=== PATIENT | female | born 1945 | race Caucasian/White ===

== ENCOUNTER 2018-05-13 14:12 | Observation (INO) ==
[2018-05-13] MEDS ORDERED: Aspirin 81 MG TAB.CHEW PO ONE (14:47)
[2018-05-13] MEDS ORDERED: 0.9 % Sodium Chloride 500 ML IVC ONE (14:47)
--- NOTE | 2018-05-13 14:54 | Emergency Department Note ---
Disposition Clinical Impression: Elevated lipase Chest pain Qualifiers: Chest pain type: other chest pain Qualified Code(s): R07.89 - Other chest pain Disposition: Admitted As Inpatient Condition: Good General Adult HPI - General Chief complaint: ED Chest Pain Stated complaint: Diarrhea, Chest pressure Time Seen by Provider: 05/13/18 14:20 Source: patient Mode of arrival: ambulatory Limitations: no limitations - History of Present Illness HPI Narrative: Patient is a 72-year-old female presenting with nausea and diarrhea and chest pain. Patient has past medical history of pancreatitis ongoing for the past 4 years and hyperlipidemia. Patient states that she has been having ongoing episodes of pancreatitis, currently follows with gastroenterology Dr. Vigil, at [place]. She states on Sunday she started having abdominal pain located in the midepigastric region described as dull at times becoming sharp and rated 7-8 out of 10 exacerbated by any palpation or movement. She denies any alleviating factors. She states that she generally is able to control her pancreatitis with diet however has gradually gotten worse over the past few days. She has had associated diarrhea episodes multiple times per day. Denies any blood in her stool. She continues to have nausea, does not have vomiting. Denies fever or chills. She states that on Sunday she had an MRI performed of her abdomen , for further follow-up with gastroenterology. She states that she does have a follow-up appointment for this imaging today with her destination imagination coordinator. Patient also notes having chest pain that began about one hour ago, while sitting on the toilet, she began to have mid chest pressure, that radiated into the right side. She had an associated diaphoretic episode with increasing shortness of breath. She states the discomfort is currently rated at a 4 out of 10 and has been constant since that time, slightly decreasing in pain. She denies taking any medication for this pain at this point in time. She denies history of myocardial infarction, hypertension. Pain Scale: 7 - Related Data Allergies Allergy/AdvReac Type Severity Reaction Status Date / Time chlorzoxazone Allergy Hives Verified 05/13/18 15:20 [From Parafon Forte] albuterol AdvReac See Verified 05/13/18 15:20 Comments Amoxicillin [From Augmentin] AdvReac Vomiting Verified 05/13/18 15:20 ciprofloxacin [From Cipro] AdvReac Gastrointestinal Verified 05/13/18 15:20 Upset clavulanic acid AdvReac Vomiting Verified 05/13/18 15:20 [From Augmentin] Cyclobenzaprine AdvReac Muscle Pain Verified 05/13/18 15:20 [From Flexeril] naproxen [From Naprosyn] AdvReac Muscle Pain Verified 05/13/18 15:20 pentazocine [From Talwin] AdvReac Headache Verified 05/13/18 15:20 Sulfa (Sulfonamide AdvReac Gastrointestinal Verified 05/13/18 15:20 Antibiotics) Upset All systems ED: reviewed and negative except as stated. Review of Systems: As Per HPI Constitutional: Denies: fever, chills, weakness ENT ED: Denies: congestion Cardiovascular: Reports: chest pain, dyspnea on exertion. Denies: palpitations , orthopnea, edema, syncope Respiratory: Reports: dyspnea. Denies: cough, wheezes, hemoptysis, sputum production Gastrointestinal: Reports: abdominal pain, nausea, diarrhea. Denies: vomiting, constipation, hematemesis, melena, hematochezia Genitourinary: Denies: urgency, dysuria Musculoskeletal: Denies: back pain Integumentary: Denies: rash Neurological: Denies: headache, weakness, numbness, paresthesias, confusion Psychiatric: Denies: anxiety Endocrine: Reports: fatigue Physical Exam - General Limitations: no limitations, language barrier General appearance: alert, anxious - Head Head exam: atraumatic, normocephalic - Eye Eye exam: Present: normal appearance, PERRL, EOMI - ENT ENT exam: normal exam, normal oropharynx - Neck Neck exam: Present: normal inspection - Chest Chest inspection: Present: normal inspection, symmetric chest wall rise. Absent : tenderness - Respiratory Respiratory exam: Present: normal lung sounds bilaterally, respiratory distress. Absent: wheezes - Cardiovascular Cardiovascular exam: Present: regular rate, normal rhythm - Abdominal Exam Abdominal exam: Present: soft, tenderness (Throughout the left and right upper quadrants, greatest to the midepigastric region with guarding.), guarding, normal bowel sounds. Absent: rebound, rigidity - Extremities Exam Extremities exam: Present: normal inspection. Absent: pedal edema - Expanded Lower Extremity Exam Neurovascular/Tendon exam: Present: normal capillary refill. Absent: pulse deficit, motor deficit, sensory deficit - Neurological Exam Neurological exam: Present: alert, oriented X3 - Psychiatric Psychiatric exam: Present: normal affect, normal mood - Skin Skin exam: Present: warm, dry, intact Course Course Narrative: We will order ACS workup for patient along with LFTs and lipase to assess history pancreatitis. Patient recently had MRI performed of the abdomen will review this imaging. We will order 500 mL Vital Signs Temperature 97.3 F L 05/13/18 14:15 Pulse Rate 70 05/13/18 14:15 Respiratory Rate 16 05/13/18 14:15 Blood Pressure 121/84 05/13/18 14:15 O2 Sat by Pulse Oximetry 100 05/13/18 14:15 Temperature 99.0 F 05/14/18 11:10 Pulse Rate 81 05/14/18 11:10 Respiratory Rate 16 05/14/18 11:10 Blood Pressure 117/72 05/14/18 11:10 O2 Sat by Pulse Oximetry 96 05/14/18 11:10 Oxygen Delivery Oxygen Delivery Room Air Medical Decision Making - MDM Narrative Medical decision making narrative: Patient is a 72-year-old female who presents with chest pain, diarrhea with history of pancreatitis. Evaluation in the emergency department revealed a normal CBC, LFT, BMP with negative troponin and EKG. Lipase was elevated at 137. MRI that was performed last week showed dilatation of the pancreatic duct. It was recommended for ERCP to be performed for further evaluation. Patient was given 25 g of fentanyl with relief of pain. She was given 500 mL bolus of fluid. The patient has heart score of 4; with one risk factor, moderately suspicious history, normal EKG and age. Patient is agreeable for admission with observation at this point in time. At this point in time we will talk to hospitalist for observation for ACS rule out. Discussed the patient with hospitalist at 1725, was admitted for ACS rule out. - Medical Records Medical records reviewed: Yes I reviewed the patient's medical records. - Lab Data Lab results reviewed: Yes I reviewed the patient's lab results. Result diagrams: 05/13/18 15:07 05/13/18 15:07 Lab Results 05/13/18 05/13/18 05/13/18 Range/Units 15:07 15:07 15:07 WBC 7.1 (4.3-11.1) K/mcL RBC 4.72 (3.82-4.97) M/mcL Hgb 14.7 (11.5-15.4) g/dL Hct 42.1 (35.3-44.9) % MCV 89.2 (83.0-100.0) fL MCH 31.1 (28.0-33.3) pg MCHC 34.9 (31.6-35.5) g/dL RDW 12.5 (11.5-14.5) % Plt Count 260 (140-400) K/mcL MPV 9.8 (9.4-12.4) fL Immature Gran % 0.3 (0-4) % Seg Neutrophils % 73.8 % Lymphocytes % 12.9 % Monocytes % 12.1 % Eosinophils % 0.6 % Basophils % 0.3 % Neutrophils # 5.3 (1.6-8.9) K/mcL Lymphocytes # 0.9 (0.6-4.6) K/mcL Monocytes # 0.9 (0.0-1.3) K/mcL Eosinophils # 0.0 (0.0-0.6) K/mcL Basophils # 0.0 (0.0-0.2) K/mcL PT 11.5 (9.4-12.1) Seconds INR 1.0 APTT 34.0 (26.0-36.0) Seconds Sodium (136-145) mEq/L Potassium (3.5-5.1) mEq/L Chloride (98-107) mEq/L Carbon Dioxide (23-29) mEq/L BUN (8-23) mg/dL Creatinine (0.60-1.20) mg/dL Est GFR ( Amer) (> 60) Est GFR (Non-Af Amer) (> 60) BUN/Creatinine Ratio (6-26) Glucose (70-105) mg/dL Calculated Osmolality (280-300) Calcium (8.6-10.3) mg/dL Total Bilirubin 0.5 (0.3-1.0) mg/dL Direct Bilirubin 0.1 (0.0-0.2) mg/dL Indirect Bilirubin 0.4 (0.0-1.2) mg/dL AST 39 (13-39) Units/L ALT 24 (7-52) Units/L Alkaline Phosphatase 95 (34-104) Units/L Troponin I (< 0.04) ng/mL Serum Total Protein 6.9 (6.4-8.9) g/dL Albumin 4.3 (3.5-5.7) g/dL Globulin 2.6 (2.4-3.5) g/dL Albumin/Globulin Ratio 1.7 (1.1-2.2) Lipase 137 H (11-82) Units/L 05/13/18 Range/Units 15:07 WBC (4.3-11.1) K/mcL RBC (3.82-4.97) M/mcL Hgb (11.5-15.4) g/dL Hct (35.3-44.9) % MCV (83.0-100.0) fL MCH (28.0-33.3) pg MCHC (31.6-35.5) g/dL RDW (11.5-14.5) % Plt Count (140-400) K/mcL MPV (9.4-12.4) fL Immature Gran % (0-4) % Seg Neutrophils % % Lymphocytes % % Monocytes % % Eosinophils % % Basophils % % Neutrophils # (1.6-8.9) K/mcL Lymphocytes # (0.6-4.6) K/mcL Monocytes # (0.0-1.3) K/mcL Eosinophils # (0.0-0.6) K/mcL Basophils # (0.0-0.2) K/mcL PT (9.4-12.1) Seconds INR APTT (26.0-36.0) Seconds Sodium 138 (136-145) mEq/L Potassium 3.6 (3.5-5.1) mEq/L Chloride 102 (98-107) mEq/L Carbon Dioxide 27 (23-29) mEq/L BUN 15 (8-23) mg/dL Creatinine 0.65 (0.60-1.20) mg/dL Est GFR ( Amer) > 60 (> 60) Est GFR (Non-Af Amer) > 60 (> 60) BUN/Creatinine Ratio 23 (6-26) Glucose 118 H (70-105) mg/dL Calculated Osmolality 288 (280-300) Calcium 9.8 (8.6-10.3) mg/dL Total Bilirubin (0.3-1.0) mg/dL Direct Bilirubin (0.0-0.2) mg/dL Indirect Bilirubin (0.0-1.2) mg/dL AST (13-39) Units/L ALT (7-52) Units/L Alkaline Phosphatase (34-104) Units/L Troponin I < 0.03 (< 0.04) ng/mL Serum Total Protein (6.4-8.9) g/dL Albumin (3.5-5.7) g/dL Globulin (2.4-3.5) g/dL Albumin/Globulin Ratio (1.1-2.2) Lipase (11-82) Units/L - Radiology Data Radiology results reviewed: Yes I reviewed the patient's radiology results. Chest X-Ray 05/13/18 14:47 IMPRESSION: Hazy right lower lung opacity suspicious of developing airspace disease such as pneumonia. RECOMMENDATION: Progress study after appropriate therapy. D/ / Robin Brennan / Robin Brennan Interpreting Provider: Robin Brennan of the Abdomen 1. Mild biliary ductal dilatation with filling defect in the distal common bile duct suspicious for choledocholithiasis. 2. Mild dilatation of the main pancreatic duct near the ampulla may be due to an obstructing stone at the ampulla or subtle mass. ERCP could better evaluate this. The findings were sent to the Radiology Results Communication Center at 3:40 pm on 05/08/2018 to be communicated to a licensed caregiver. - EKG Data EKG #1 EKG attestation: Yes I reviewed and interpreted this EKG. EKG results narrative: EKG performed [id number] at 1435 with heart rate of 80, [place] interval 157, QRS 95, QT 384, QTc 443, regular rhythm, normal axis, no signs of hypertrophy, artifact noted on EKG, no acute ST elevation, no T-wave modalities noted. No history of old EKGs were able to be obtained at this point in time. EKG shows normal: sinus rhythm Heart Score - Score History: Moderately Suspicious EKG: Normal Age: Greater than 65 Risk Factors: 1-2 risk factors Troponin: Less than normal limit HEART Score Total: 4
[2018-05-13 15:23] LABS: Basophils % 0.3 %; Eosinophils % 0.6 %; Hematocrit 42.1 % (35.3-44.9); Hemoglobin 14.7 g/dL (11.5-15.4); Immature Granulocytes % 0.3 % (0-4); Lymphocytes # 0.9 K/mcL (0.6-4.6); Lymphocytes % 12.9 %; Mean Corpuscular HGB Conc 34.9 g/dL (31.6-35.5); Mean Corpuscular Hemoglobin 31.1 pg (28.0-33.3); Mean Corpuscular Volume 89.2 fL (83.0-100.0); Mean Platelet Volume 9.8 fL (9.4-12.4); Monocytes # 0.9 K/mcL (0.0-1.3); Monocytes % 12.1 %; Neutrophils # 5.3 K/mcL (1.6-8.9); Platelet Count 260 K/mcL (140-400); Red Blood Count 4.72 M/mcL (3.82-4.97); Red Cell Distribution Width 12.5 % (11.5-14.5); Segmented Neutrophils % 73.8 %
--- NOTE | 2018-05-13 15:31 | Emergency Department Note ---
Disposition Clinical Impression: Elevated lipase Chest pain Qualifiers: Chest pain type: other chest pain Qualified Code(s): R07.89 - Other chest pain Disposition: Admitted As Inpatient Condition: Good General Adult HPI - General Chief complaint: ED Chest Pain Stated complaint: Diarrhea, Chest pressure Time Seen by Provider: 05/13/18 14:20 Source: patient Mode of arrival: ambulatory Limitations: no limitations, language barrier - History of Present Illness Pain Scale: 7 - Related Data Home Medications Medication Instructions Recorded Confirmed Esomeprazole Magnesium [Nexium] 40 mg PO DAILY 05/13/18 05/13/18 Ezetimibe [Zetia] 10 mg PO HS 05/13/18 05/13/18 Levalbuterol [Xopenex INH] 45 mcg IH Q4H PRN 05/13/18 05/13/18 Montelukast [Singulair] 10 mg PO DAILY 05/13/18 05/13/18 hydroCHLOROthiazide 25 mg PO DAILY 05/13/18 05/13/18 [Hydrochlorothiazide] Allergies Allergy/AdvReac Type Severity Reaction Status Date / Time chlorzoxazone Allergy Hives Verified 05/13/18 15:20 [From Parafon Forte] albuterol AdvReac See Verified 05/13/18 15:20 Comments Amoxicillin [From Augmentin] AdvReac Vomiting Verified 05/13/18 15:20 ciprofloxacin [From Cipro] AdvReac Gastrointestinal Verified 05/13/18 15:20 Upset clavulanic acid AdvReac Vomiting Verified 05/13/18 15:20 [From Augmentin] Cyclobenzaprine AdvReac Muscle Pain Verified 05/13/18 15:20 [From Flexeril] naproxen [From Naprosyn] AdvReac Muscle Pain Verified 05/13/18 15:20 pentazocine [From Talwin] AdvReac Headache Verified 05/13/18 15:20 Sulfa (Sulfonamide AdvReac Gastrointestinal Verified 05/13/18 15:20 Antibiotics) Upset Constitutional: Denies: fever, chills, weakness ENT ED: Denies: congestion Cardiovascular: Reports: chest pain, dyspnea on exertion. Denies: palpitations , orthopnea, edema, syncope Respiratory: Reports: dyspnea. Denies: cough, wheezes, hemoptysis, sputum production Gastrointestinal: Reports: abdominal pain, nausea, diarrhea. Denies: vomiting, constipation, hematemesis, melena, hematochezia Genitourinary: Denies: urgency, dysuria Musculoskeletal: Denies: back pain Integumentary: Denies: rash Neurological: Denies: headache, weakness, numbness, paresthesias, confusion Psychiatric: Denies: anxiety Endocrine: Reports: fatigue Physical Exam - General Limitations: no limitations, language barrier General appearance: alert, anxious Course Vital Signs Temperature 97.3 F L 05/13/18 14:15 Pulse Rate 70 05/13/18 14:15 Respiratory Rate 16 05/13/18 14:15 Blood Pressure 121/84 05/13/18 14:15 O2 Sat by Pulse Oximetry 100 05/13/18 14:15 Temperature 99.0 F 05/14/18 11:10 Pulse Rate 81 05/14/18 11:10 Respiratory Rate 16 05/14/18 11:10 Blood Pressure 117/72 05/14/18 11:10 O2 Sat by Pulse Oximetry 96 05/14/18 11:10 Oxygen Delivery Oxygen Delivery Room Air Medical Decision Making - Lab Data Result diagrams: 05/13/18 15:07 05/13/18 15:07 Lab Results 05/13/18 05/13/18 05/13/18 Range/Units 15:07 15:07 15:07 WBC 7.1 (4.3-11.1) K/mcL RBC 4.72 (3.82-4.97) M/mcL Hgb 14.7 (11.5-15.4) g/dL Hct 42.1 (35.3-44.9) % MCV 89.2 (83.0-100.0) fL MCH 31.1 (28.0-33.3) pg MCHC 34.9 (31.6-35.5) g/dL RDW 12.5 (11.5-14.5) % Plt Count 260 (140-400) K/mcL MPV 9.8 (9.4-12.4) fL Immature Gran % 0.3 (0-4) % Seg Neutrophils % 73.8 % Lymphocytes % 12.9 % Monocytes % 12.1 % Eosinophils % 0.6 % Basophils % 0.3 % Neutrophils # 5.3 (1.6-8.9) K/mcL Lymphocytes # 0.9 (0.6-4.6) K/mcL Monocytes # 0.9 (0.0-1.3) K/mcL Eosinophils # 0.0 (0.0-0.6) K/mcL Basophils # 0.0 (0.0-0.2) K/mcL PT 11.5 (9.4-12.1) Seconds INR 1.0 APTT 34.0 (26.0-36.0) Seconds Sodium (136-145) mEq/L Potassium (3.5-5.1) mEq/L Chloride (98-107) mEq/L Carbon Dioxide (23-29) mEq/L BUN (8-23) mg/dL Creatinine (0.60-1.20) mg/dL Est GFR ( Amer) (> 60) Est GFR (Non-Af Amer) (> 60) BUN/Creatinine Ratio (6-26) Glucose (70-105) mg/dL Calculated Osmolality (280-300) Calcium (8.6-10.3) mg/dL Total Bilirubin 0.5 (0.3-1.0) mg/dL Direct Bilirubin 0.1 (0.0-0.2) mg/dL Indirect Bilirubin 0.4 (0.0-1.2) mg/dL AST 39 (13-39) Units/L ALT 24 (7-52) Units/L Alkaline Phosphatase 95 (34-104) Units/L Troponin I (< 0.04) ng/mL Serum Total Protein 6.9 (6.4-8.9) g/dL Albumin 4.3 (3.5-5.7) g/dL Globulin 2.6 (2.4-3.5) g/dL Albumin/Globulin Ratio 1.7 (1.1-2.2) Lipase 137 H (11-82) Units/L //18 Range/Units 15:07 WBC (4.3-11.1) K/mcL RBC (3.82-4.97) M/mcL Hgb (11.5-15.4) g/dL Hct (35.3-44.9) % MCV (83.0-100.0) fL MCH (28.0-33.3) pg MCHC (31.6-35.5) g/dL RDW (11.5-14.5) % Plt Count (140-400) K/mcL MPV (9.4-12.4) fL Immature Gran % (0-4) % Seg Neutrophils % % Lymphocytes % % Monocytes % % Eosinophils % % Basophils % % Neutrophils # (1.6-8.9) K/mcL Lymphocytes # (0.6-4.6) K/mcL Monocytes # (0.0-1.3) K/mcL Eosinophils # (0.0-0.6) K/mcL Basophils # (0.0-0.2) K/mcL PT (9.4-12.1) Seconds INR APTT (26.0-36.0) Seconds Sodium 138 (136-145) mEq/L Potassium 3.6 (3.5-5.1) mEq/L Chloride 102 (98-107) mEq/L Carbon Dioxide 27 (23-29) mEq/L BUN 15 (8-23) mg/dL Creatinine 0.65 (0.60-1.20) mg/dL Est GFR ( Amer) > 60 (> 60) Est GFR (Non-Af Amer) > 60 (> 60) BUN/Creatinine Ratio 23 (6-26) Glucose 118 H (70-105) mg/dL Calculated Osmolality 288 (280-300) Calcium 9.8 (8.6-10.3) mg/dL Total Bilirubin (0.3-1.0) mg/dL Direct Bilirubin (0.0-0.2) mg/dL Indirect Bilirubin (0.0-1.2) mg/dL AST (13-39) Units/L ALT (7-52) Units/L Alkaline Phosphatase (34-104) Units/L Troponin I < 0.03 (< 0.04) ng/mL Serum Total Protein (6.4-8.9) g/dL Albumin (3.5-5.7) g/dL Globulin (2.4-3.5) g/dL Albumin/Globulin Ratio (1.1-2.2) Lipase (11-82) Units/L Attestation Statement - Attestation Attestation: I examined this patient and my medical decision-making was reviewed with the Resident Physician. I agree with the documented findings, disposition and treatment plan as described except to the extent set forth below. Patient presents to the ED with chief complaint of chest pain. Patient states she has been having some diarrhea for several days. She went to the bathroom because she felt like she had have a bowel movement. She states nothing come out but she had an intense pain in her chest. She broke out in a cold sweat. The pain is resolved but she has some residual heaviness and just does not feel right. Patient is concerned this is submitted with her pancreas. She has a history of pancreatitis. She had a recent MRI showed a bile duct dilatation. She was scheduled to see GI today became here when she developed chest pain. Patient states she just does not feel right. On examination she appears mildly anxious but in no distress. Her lungs are clear. Plan. Cardiac workup. LFTs. Elevated lipase. Heart score 4. Admitted. Chest X-Ray 05/13/18 14:47 IMPRESSION: Hazy right lower lung opacity suspicious of developing airspace disease such as pneumonia. RECOMMENDATION: Progress study after appropriate therapy. D/ / Robin Brennan / Robin Brennan Interpreting Provider: Robin Brennan Heart Score - Score History: Moderately Suspicious EKG: Normal Age: Greater than 65 Risk Factors: 1-2 risk factors Troponin: Less than normal limit HEART Score Total: 4
[2018-05-13 15:32] LABS: Prothrombin Time 11.5 Seconds (9.4-12.1)
[2018-05-13 15:44] LABS: Albumin 4.3 g/dL (3.5-5.7); Albumin/Globulin Ratio 1.7 (1.1-2.2); Bilirubin,Direct 0.1 mg/dL (0.0-0.2); Bilirubin,Indirect 0.4 mg/dL (0.0-1.2); Bilirubin,Total 0.5 mg/dL (0.3-1.0); Globulin 2.6 g/dL (2.4-3.5); Total Protein 6.9 g/dL (6.4-8.9)
[2018-05-13 15:46] LABS: BUN/Creatinine Ratio 23 (6-26); Blood Urea Nitrogen 15 mg/dL (8-23); Calcium 9.8 mg/dL (8.6-10.3); Carbon Dioxide 27 mEq/L (23-29); Chloride 102 mEq/L (98-107); Glucose 118 mg/dL (70-105); Osmolality,Calculated 288 (280-300); Potassium 3.6 mEq/L (3.5-5.1); Sodium 138 mEq/L (136-145); eGFR For Non-African Americans > 60 (> 60)
[2018-05-13 15:47] LABS: Troponin I < 0.03 ng/mL (< 0.04)
[2018-05-13] MEDS ORDERED: *HR* FentaNYL (PF) 100 MCG/2 ML VIAL IVP ONE (16:06)
--- NOTE | 2018-05-13 19:09 | Internal Med History&Physical ---
Date of Encounter: 05/13/18 Time of Encounter: 19:09 Internal Medicine - H&P: HPI Chief complaint: chest/epigatric pain Admitted From: Home Plans for Post Hospital Care: Home History of present illness: Ms. Barney is a 72 year old female with past medical history of recurrent pancreatitis/chronic pancreatitis following a cholecystectomy she had delvalle 4 years ago, and HLD. Pt presents with multiple complaints. She states she developed acute onset chest pressure today and was diaphoretic. Denies radiation of pain to her UE but states she has had multiple shoulder surgeries and it's difficult to say if pain is related to her episode of chest discomfort. She states she does get SOB once in a while due to hx of Asthma but denies having SOB in relation to chest pressure. Characterizes sensation as chest pressure was not chest pain. Pt reports having diarrhea since Sunday05/11/2018. She denies recent antibiotic therapy. She also reports RUQ quadrant pain. States she had been seeing a GI physician in [place] but had not been back to him in a year. PCP recently ordered MRI abdomen which showed dilation of CBD and ? CBD stone. Pt reports that she was aware she has dilation of CBD and also reports having hx of pancreatic mass. She states she was informed that pancreatic mass where non-malignant and that they had "disappeared". Pt reports having vaginal discharge that is dark red. States she had vaginal exam done recently and also had some vaginal swabs sent which where all reported to her as negative. Pt is s/p hysterectomy since her 30's and has not had a period in years. Pt states OBGYN recommending colonoscopy. She had been davon to have colonoscopy done out p jun 13 Pt states she also had an appt with GI today at 2:30 pm this afternoon, however due to worsening RUQ pain and sudden onset chest pressure she decided to come to the ED instead. Pt denies cough or sputum. She denies CP or SOB. Denies fever or chills. In ED Temp 97.8, HR 79, RR 16, BP 116/73, sating at 98% on room air. CBC within normal limits, BMP reviewed and glucose 18 otherwise was wnl, lipase 137. Troponin <0.03. Chest xray XR/XR chest 1V portable IMPRESSION: Hazy right lower lung opacity suspicious of developing airspace disease such as pneumonia. MRI abd MR/MR abdomen wo con IMPRESSION: 1. Mild biliary ductal dilatation with filling defect in the distal common bile duct suspicious for choledocholithiasis. 2. Mild dilatation of the main pancreatic duct near the ampulla may be due to an obstructing stone at the ampulla or subtle mass. ERCP could better evaluate this. The findings were sent to the [facility] at 3:40 pm on 05/08/2018 to be communicated to a licensed caregiver. CODE STATUS FULL Past Med Surg Social Fam HX - Past Medical History Medical history: asthma, other Additional medical history: pancreatitis Psychiatric history: no psych history - Past Surgical History Additional surgical history: right shoulder x 3. back x 2. neck x 1. right carpal tunnel. left shoulder x 1 - Social History Smoking Status: Never smoker Smokeless Tobacco Status: No Alcohol use: none Drug use: none Internal Medicine - H&P: Meds Esomeprazole Magnesium [Nexium] 40 mg PO DAILY 05/13/18 [History] Ezetimibe [Zetia] 10 mg PO HS 05/13/18 [History] Levalbuterol [Xopenex INH] 45 mcg IH Q4H PRN 05/13/18 [History] Montelukast [Singulair] 10 mg PO DAILY 05/13/18 [History] hydroCHLOROthiazide [Hydrochlorothiazide] 25 mg PO DAILY 05/13/18 [History] 3 Allergy/AdvReac Type Severity Reaction Status Date / Time chlorzoxazone Allergy Hives Verified 05/13/18 15:20 [From Parafon Forte] albuterol AdvReac See Verified 05/13/18 15:20 Comments Amoxicillin [From Augmentin] AdvReac Vomiting Verified 05/13/18 15:20 ciprofloxacin [From Cipro] AdvReac Gastrointestinal Verified 05/13/18 15:20 Upset clavulanic acid AdvReac Vomiting Verified 05/13/18 15:20 [From Augmentin] Cyclobenzaprine AdvReac Muscle Pain Verified 05/13/18 15:20 [From Flexeril] naproxen [From Naprosyn] AdvReac Muscle Pain Verified 05/13/18 15:20 pentazocine [From Talwin] AdvReac Headache Verified 05/13/18 15:20 Sulfa (Sulfonamide AdvReac Gastrointestinal Verified 05/13/18 15:20 Antibiotics) Upset All Systems PM: A 10-system review of systems was performed and is negative for pertinent findings except as documented above in the HPI. - EENT Ears: no ear discharge, no ear pain, no tinnitus Nose, mouth and throat: no dysphagia, no nasal discharge, no neck pain, no sore throat - Cardiovascular Cardiovascular ROS IM: no chest pain, no diaphoresis, no dyspnea, no lightheadedness, no palpitations, no syncope - Respiratory Respiratory: no cough, no dyspnea, no wheezing, no excessive phlegm production - Gastrointestinal Gastrointestinal: no abdominal pain, no diarrhea, no hematemesis, no hematochezia, no melena, no nausea, no vomiting - Genitourinary Genitourinary: no change in urinary stream, no dysuria, no flank pain, no hematuria - Musculoskeletal Musculoskeletal ROS IM: no numbness, no tingling - Integumentary Integumentary IM: no rash, no unusual bruising - Neurological Neurological ROS: no confusion, no convulsions, no focal weakness, no numbness, no tingling, no tremor(s) - Hematologic/Lymphatic Hematologic/Lymphatic: no easy bruising - Constitutional Vitals: Temp Pulse Resp BP Pulse Ox 97.3 F L 75 20 104/66 98 05/13/18 15:24 05/13/18 15:53 05/13/18 18:07 05/13/18 18:07 05/13/18 15:53 General appearance: Present: A&O X 3, no acute distress Exam: See above - Head Head exam: Present: atraumatic, normocephalic - Eye Eye exam: Present: PERRL, conjuntiva pink, sclera anicteric Pupils: Present: PERRL - Neck Neck exam general surgery: Present: supple, trachea midline. Absent: lymphadenopathy - Respiratory Respiratory exam: Present: CTAB. Absent: accessory muscle use, rales, rhonchi, wheezes - Cardiovascular Cardiovascular exam: Present: RRR, +S1, +S2. Absent: diastolic murmur, gallop, rubs, systolic murmur - GI/Abdominal GI/Abdominal exam: Present: normal bowel sounds, soft, no peritoneal signs. Absent: distended, tenderness Additional comments: RUQ tenderness - Extremities Exam Extremities exam: Present: warm, radial pulses palpable and symmetrical. Absent : calf tenderness, cyanotic, pedal edema - Neurological Exam Neurological exam: Present: CN II-XII intact, oriented X3, no focal deficits. Absent: pronater drift, facial droop, speech deficit - Skin Skin exam: Present: dry, intact Internal Med - H&P Results - Labs CBC & Chem 7: 05/13/18 15:07 05/13/18 15:07 - Assessment and plan (1) Diarrhea Current Visit: Yes Status: Acute Assessment and plan: Will give IVF, clear liquid for now. Will send stools for C.diff and stool culture. Qualifiers: Qualified Code(s): R19.7 - Diarrhea, unspecified (2) Chest pain Current Visit: Yes Status: Acute Assessment and plan: Will cycle troponin, nitro prn and ASA daily. Will check Lipid profile in am. Qualifiers: Chest pain type: other chest pain Qualified Code(s): R07.89 - Other chest pain; R07.8 - Other chest pain (3) Common bile duct dilation Current Visit: Yes Status: Acute Assessment and plan: Consult GI for possible ERCP. (4) Elevated lipase Current Visit: Yes Status: Acute Assessment and plan: Will give IVF pt not complaining of LUQ pain. (5) Right upper quadrant abdominal pain Current Visit: Yes Status: Acute Assessment and plan: prn pain control. CXR showing possible developing infiltrate but pt not coughing , no sputum, afebrile, WBC wnl so doubt PNA at this time. Will continue to monitor. (6) Vaginal discharge Current Visit: Yes Status: Acute Assessment and plan: Follow up out pt with NUCLEAR PHYSICS PROFESSOR. - Time Spent With Patient Total time spent is greater than 50% in coordination of care (as documented) at patient's floor/unit and/or counseling patient: Greater than 35 minutes
[2018-05-13] MEDS ORDERED: Naloxone 0.4 MG/ML INJ IVP PRN (20:22)
[2018-05-13] MEDS ORDERED: Acetaminophen 325 MG TABLET PO PRN (20:22)
[2018-05-13] MEDS ORDERED: Melatonin 3 MG TABLET PO PRN (20:29)
[2018-05-13] MEDS ORDERED: Ondansetron 4 MG/2 ML VIAL IVP PRN (20:29)
[2018-05-13] MEDS ORDERED: Nitroglycerin 0.4 MG TAB.SUBL SL PRN (20:30)
[2018-05-13] MEDS ORDERED: *HR* OxyCODONE/APAP 5/325 TABLET PO PRN (20:37)
[2018-05-13] MEDS ORDERED: (Ezetimibe [Zetia] 10 MG) PO SCH (21:00)
[2018-05-13] MEDS: 0.9 % Sodium Chloride 1,000 ML IVC SCH (21:10)
[2018-05-13 21:48] LABS: Bilirubin,Urine Negative (Negative); Blood,Urine Negative (Negative); Clarity,Urine Clear (Clear); Color,Urine Yellow (Yellow); Glucose,Urine (UA) Normal (Normal); Ketones,Urine Negative (Negative); Leukocyte Esterase,Urine Trace (Negative); Nitrite,Urine Negative (Negative); PH,Urine 6.5 pH Units (5.0-8.0); Protein,Urine Negative (Neg-Trace); Specific Gravity,Urine 1.009 (1.010-1.025); Urobilinogen,Urine Normal (Normal)
[2018-05-13 21:49] LABS: Bacteria,Urine None Seen per hpf (None-Few); Hyaline Casts,Urine None Seen per lpf (None-Few); RBC,Urine 0-3 per hpf (0-3); Squamous Epithelial Cell,Urine Moderate per lpf (None-Few)
[2018-05-14] MEDS ORDERED: Levalbuterol 1 PUFF INHALER IH PRN
[2018-05-14 03:03] LABS: Chol/HDL Ratio 4.2 (0-4.9)
[2018-05-14] MEDS ORDERED: hydroCHLOROthiazide 25 MG TABLET PO SCH (09:00)
--- NOTE | 2018-05-14 10:38 | Gastroenterology Consult Note ---
<Jose Peña - Last Filed: 05/14/18 13:34> Date of Encounter: 05/14/18 Time of Encounter: 10:36 - Assessment and plan (1) Common bile duct dilation Status: Acute Assessment and plan: Patient recently had an MRI of the abdomen ordered by her PCP, which demonstrated - Mild biliary ductal dilatation with filling defect in the distal CBD suspicious for choledocholithiasis. - Mild dilatation of the main pancreatic duct near the ampulla may be due to an obstructing stone at the ampulla or subtle mass - Images reviewed; Patient has a questionable filling defect and a very small stone. 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 Plan: - No intervention is necessary at this time. - Will resume regular diet (2) Diarrhea Status: Acute Assessment and plan: - Patient presented with diarrhea since Friday 05/11 - Patient denies any recent antibiotic use - C.diff and stool culture Qualifiers: Qualified Code(s): R19.7 - Diarrhea, unspecified (3) Elevated lipase Status: Acute Assessment and plan: - Patient has not known history of recurrent/chronic pancreatitis Plan: - Continue IV fluids at 75 mL per hour - Acetaminophen, oxycodone for pain control - Time Spent With Patient Total time spent is greater than 50% in coordination of care (as documented) at patient's floor/unit and/or counseling patient: GI History of Present Illness - Data of Consult Requesting Physician: Elio Nichols MD - Consult Narrative Reason for consult: Common bile duct dilation History of present illness: Ms. Barney is a 72-year-old female with a PMH of recurrent/chronic pancreatitis , status post cholecystectomy 4 years ago, and hyperlipidemia. She presented with diarrhea since Friday 05/11, as well as abdominal pain located in the mid epigastric region. She described her pain as dull, sometimes becoming sharp, rated 7-8 out of 10. Pain was exacerbated by palpation or movement. Patient reports that she had seen a GI physician in [place]. Patient had an MRI of her abdomen that was recently ordered. It demonstrated dilation of the common bile duct, as well as a common bile duct stone. Patient reported having a known history of pancreatic mass. She reported that she is normally able to control her recurrent pancreatitis through diet. Upon presentation, vital signs were within normal limits. She had an elevated lipase at 137. Patient was given 25 g of fentanyl for pain control. She was also given a 500 mL bolus of fluid. Patient was seen and examined at bedside; she reports a significant improvement in her initial abdominal pain. Denies diarrhea at this time. Denies fever, chills, nausea, and vomiting. She admits to some mild epigastric and RUQ pain, which she states is baseline. A possible ERCP was discussed with patient; she was adamant that she would not want to go forward with this procedure due to its associated risks. She has no further complaints at this time. Past Med Surg Social Fam HX - Past Medical History Medical history: asthma, other Additional medical history: pancreatitis Psychiatric history: no psych history - Past Surgical History Surgical History: appendectomy, cholecystectomy, hysterectomy Additional surgical history: right shoulder x 3. back x 2. neck x 1. right carpal tunnel. left shoulder x 1 - Social History Smoking Status: Never smoker Smokeless Tobacco Status: No Alcohol use: none Drug use: none - Family History Mother Living Status: Hx Family Cardiac Disorders: Yes Hx Family Cancer: Yes Hx Family Neurologic Disorders: Yes Father Hx Family Cardiac Disorders: Yes Hx Family Respiratory Disorders: Yes (COPD) - Constitutional Vitals: Temp Pulse Resp BP Pulse Ox 98.8 F 70 16 92/54 96 05/14/18 06:46 05/14/18 06:46 05/14/18 06:46 05/14/18 06:46 05/14/18 06:46 - Other Additional findings: General: No acute distress Neck: trachea midline Heart: RRR, S1, S2, no murmurs, rubs, gallops Lungs: CTAB; no wheezes, rales, or rhonchi Abdomen: Mild epigastric and RUQ tenderness exacerbated by palpation Integumentary: dry, intact Psych: Normal affect, mood appropriate Results - Labs CBC & Chem 7: 05/13/18 15:07 05/13/18 15:07 Labs: Last Result Calcium 9.8 mg/dL (8.6-10.3) 05/13/18 15:07 Troponin I < 0.03 ng/mL (< 0.04) 05/14/18 08:27 Triglycerides 122 mg/dL (< 150) 05/14/18 02:32 Salicylates < 2.5 mg/dL (15.0-30.0) L 05/13/18 20:45 Entire Visit Hgb 14.7 g/dL (11.5-15.4) 05/13/18 15:07 Hct 42.1 % (35.3-44.9) 05/13/18 15:07 PT 11.5 Seconds (9.4-12.1) 05/13/18 15:07 Total Bilirubin 0.5 mg/dL (0.3-1.0) 05/13/18 15:07 AST 39 Units/L (13-39) 05/13/18 15:07 ALT 24 Units/L (7-52) 05/13/18 15:07 Lipase 137 Units/L (11-82) H 05/13/18 15:07 - ABG ABG results: PT/INR, D-dimer PT 11.5 Seconds (9.4-12.1) 05/13/18 15:07 Consult Discharge Plan - Plan Instructions: Acute Abdominal Pain (DC) Additional Instructions: Follow with your PCP in the next 5-7 days. Return to the ER as needed for any other problems or concerns, or if your symptoms return or worsen. Take your medications as directed. REturn to your normal diet and activities as tolerated. Referrals: Alexei David DO [Primary Care Provider] - 05/21/18 11:30 am <Adriana Wood - Last Filed: 05/16/18 07:40> Date of Encounter: 05/14/18 Time of Encounter: 15:00 - Time Spent With Patient Total time spent is greater than 50% in coordination of care (as documented) at patient's floor/unit and/or counseling patient: GI History of Present Illness - Data of Consult Requesting Physician: Elio Nichols MD - Consult Narrative History of present illness: Ms. Barney is a 72 year old female - Constitutional Vitals: Temp Pulse Resp BP Pulse Ox 99.0 F 81 16 117/72 96 05/14/18 11:10 05/14/18 11:10 05/14/18 11:10 05/14/18 11:10 05/14/18 11:10 Results - Labs CBC & Chem 7: 05/13/18 15:07 05/13/18 15:07 Labs: Last Result Calcium 9.8 mg/dL (8.6-10.3) 05/13/18 15:07 Troponin I < 0.03 ng/mL (< 0.04) 05/14/18 08:27 Triglycerides 122 mg/dL (< 150) 05/14/18 02:32 Salicylates < 2.5 mg/dL (15.0-30.0) L 05/13/18 20:45 Entire Visit Hgb 14.7 g/dL (11.5-15.4) 05/13/18 15:07 Hct 42.1 % (35.3-44.9) 05/13/18 15:07 PT 11.5 Seconds (9.4-12.1) 05/13/18 15:07 Total Bilirubin 0.5 mg/dL (0.3-1.0) 05/13/18 15:07 AST 39 Units/L (13-39) 05/13/18 15:07 ALT 24 Units/L (7-52) 05/13/18 15:07 Lipase 137 Units/L (11-82) H 05/13/18 15:07 - ABG ABG results: PT/INR, D-dimer PT 11.5 Seconds (9.4-12.1) 05/13/18 15:07 - Attending Attestation I examined this patient and my medical decision-making was reviewed with the Resident Physician. I agree with the documented findings, disposition and treatment plan as described except to the extent set forth below. Pt seen. on exma; Abd soft. A; Pt with dilated CBD but KLFTS normal. MRCP ?? filling defect . Rec: Pt not interested in ERCP. No acute indication .
[2018-05-14 11:13] VITALS: BP 117/72
[2018-05-14] MEDS: 0.9 % Sodium Chloride 1,000 ML IVC SCH (11:45)
--- NOTE | 2018-05-14 15:41 | Internal Med Progress Note ---
Hospitalist Progress Note - Encounter Date of Encounter: 05/14/18 Time of Encounter: 09:25 - Subjective Interval History: Pt was seen and assessed at bedside at 0925. Pt was agitated and repeated several times that she just wants to be heard, but states that nothing is wrong and that she doesn't want to say anything. She declines need to seek charge nurse, nurse airborne weapons technical manager, patient advocate. She repeats that she is "not happy camper", but declines to state why she is upset or what the problem is. Pt states that she knows that her pancreas is the problem and she doesn't know why she is here or why she was admitted. WE discussed her labs and complaints and that she was going to be seen by GI, again, pt is agitated because I can't tell her when GI will see her. He physical exam is unremarkable and she states that she no longer has diarrhea and that her abdominal pain has resolved. - Exam Vitals: Temp Pulse Resp BP Pulse Ox 99.0 F 81 16 117/72 96 05/14/18 11:10 05/14/18 11:10 05/14/18 11:10 05/14/18 11:10 05/14/18 11:10 Exam: General: Pt resting quietly on bed, no distress. Skin: pwd, no rashes, lesions, redness Neurological: Pt is alert and awake, oriented x 3, Speech is clear, PERRLA, EOMI , no nystagmus, no pronator drift. strength equal x 4 extremities HEENT: mucous mumbranes moist, no conjuctival pallor Neck: supple, no tracheal deviation, no lymphadenopathy, tenderness, no thyromegaly Heart: S1S2 heard without gallops, clicks, murmurs, no bradycardia or tachycardia, pt has no peripheral edema, pedal and radial pulses palpable bilaterally. Lungs: clear throughout without wheezing, rales, or ronchi, respirations are unlabored Abdomen: soft and non tender with bowel sound present, no hepatomegaly. Psych: Normal affect with good eye contact - Assessment and Plan (1) Chest pain Current Visit: Yes Status: Acute Assessment and Plan: Resolved. Pt states that she didn't ever have chest pain, states that she had some mild chest pressure lastin approximately 10 seconds and it resolved spontaneously. Pt has none now and has none since. Troponins negative x 3. Lipis panel WNL, vitals are stable, chest xray showed hazy, RLL opacity suspitcious of developing airspace disease such as pneumonia, recommend progress study after appropriate therapy. She states that she has no cough, sputum, fever, chills, or SOB. Her vitals have been stable and she has been afebrile and is not requiring supplemental 02. Pt also has no leukocytosis. (2) Common bile duct dilation Current Visit: Yes Status: Acute Assessment and Plan: Recent MRI showed mild biliary ductal dilatation is filling defect in distal CBD suspicious for choledocholithiasis. Patient has a questionable filling defect in a very small stone, may be secondary to sphincter of Oddi dysfunction. Pt was evaluated by GI today, she has declined ERCP and states that she is no longer having pain, n/v/d. Continue to follow with her GI physician in [place]. (3) Diarrhea Current Visit: Yes Status: Acute Assessment and Plan: Pt reports diarrhea for 3 days prior to arrival. SHe has had none since arrival . Stool negative for C-Diff. (4) Elevated lipase Current Visit: Yes Status: Acute Assessment and Plan: Pt with elevated Lipase, pt has history of chronic pancreatits. She denies pain and has tolerated food and fluid. IVF 0.9NS at 75ml/hour, pain control. Follow with PCP for evaluation in 3-5 days. (5) Right upper quadrant abdominal pain Current Visit: Yes Status: Acute Assessment and Plan: Resovled. Pt denies pain at this time. CXR results shows possible developing infiltrate, however, due to lack of leukocytosis, fever, chills, cough, likely not pneumonia. Continue pain control prn (6) Vaginal discharge Current Visit: Yes Status: Acute Assessment and Plan: Pt reports dark red vaginal bleeding. Negative pelvic workup recently. LICENSED PROSTHETIST/ORTHOTIST has recommended colonoscopy which is scheduled for 06/13. Follow with GI as scheduled and LICENSED PROSTHETIST/ORTHOTIST as needed. - Time Spent with Patient Total time spent is greater than 50% in coordination of care (as documented) at patient's floor/unit and/or counseling patient: less than 15 minutes Plan of Care Discussed with: patient Internal Medicine: Result - Labs CBC & Chem 7: 05/13/18 15:07 05/13/18 15:07 Labs: Cardiac Enzymes 08/27/18 08/28/18 08/28/18 Range/Units 20:45 02:32 08:27 Troponin I < 0.03 < 0.03 < 0.03 (< 0.04) ng/mL Urine 05/13/18 Range/Units 21:31 Urine Color Yellow (Yellow) Urine Clarity Clear (Clear) Urine pH 6.5 (5.0-8.0) pH Units Ur Specific [place] 1.009 L (1.010-1.025) Urine Protein Negative (Neg-Trace) mg/dL Urine Glucose (UA) Normal (Normal) mg/dL - ABG Interpretation ABG results: PT/INR, D-dimer PT 11.5 Seconds (9.4-12.1) 05/13/18 15:07 Consult Discharge Plan - Plan Additional Instructions: Follow with your PCP in the next 5-7 days. Return to the ER as needed for any other problems or concerns, or if your symptoms return or worsen. Take your medications as directed. REturn to your normal diet and activities as tolerated. Referrals: Alexei David DO [Primary Care Provider] - 05/21/18 11:30 am (1) Chest pain Qualifiers: Chest pain type: other chest pain Qualified Code(s): R07.89 - Other chest pain; R07.8 - Other chest pain (3) Diarrhea Qualifiers: Qualified Code(s): R19.7 - Diarrhea, unspecified
--- NOTE | 2018-05-14 16:18 | Discharge Summary ---
- NOTES TO OUTPATIENT PROVIDER Notes to Outpatient Provider: Pt was agitated throughout visit and was unwilling to stay for overnight observation, pain control, IVF, and repeat labs. Lipase was elevated at 137 and pt was adamant that she be discharged, level was not redrawn, should be rechecked if her symptoms persist. Date of Encounter: 05/14/18 Time of Encounter: 09:25 - Discharge Diagnosis (1) Chest pain Priority: Secondary Status: Acute Assessment and Plan: Resolved. Pt states that she didn't ever have chest pain, states that she had some mild chest pressure lastin approximately 10 seconds and it resolved spontaneously. Pt has none now and has none since. Troponins negative x 3. Lipis panel WNL, vitals are stable, chest xray showed hazy, RLL opacity suspitcious of developing airspace disease such as pneumonia, recommend progress study after appropriate therapy. She states that she has no cough, sputum, fever, chills, or SOB. Her vitals have been stable and she has been afebrile and is not requiring supplemental 02. Pt also has no leukocytosis. Qualifiers: Chest pain type: other chest pain Qualified Code(s): R07.89 - Other chest pain; R07.8 - Other chest pain (2) Common bile duct dilation Priority: Secondary Status: Acute Assessment and Plan: Recent MRI showed mild biliary ductal dilatation is filling defect in distal CBD suspicious for choledocholithiasis. 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 Pt was evaluated by GI today, she has declined ERCP and states that she is no longer having pain, n/v/d. Continue to follow with her GI physician in [place]. (3) Diarrhea Priority: Secondary Status: Resolved Assessment and Plan: Pt reports diarrhea for 3 days prior to arrival. SHe has had none since arrival . Resolved. Stool negative for C-Diff. Qualifiers: Qualified Code(s): R19.7 - Diarrhea, unspecified (4) Elevated lipase Priority: Secondary Status: Acute Assessment and Plan: Pt with elevated Lipase; has history of chronic pancreatits. She denies pain and has tolerated food and fluid. Pt will need redraw at PCP appointment Follow with PCP for evaluation in 3-5 days. (5) Right upper quadrant abdominal pain Priority: Secondary Status: Resolved Assessment and Plan: Resovled. Pt denies pain at this time. CXR results shows possible developing infiltrate, however, due to lack of leukocytosis, fever, chills, cough, likely not pneumonia. Continue pain control prn (6) Vaginal discharge Priority: Secondary Status: Acute Assessment and Plan: Pt reports dark red vaginal bleeding, also has resovled. Negative pelvic workup recently. [facility] has recommended colonoscopy which is scheduled for 06/13. Follow with GI as scheduled and [facility] as needed. Hospital course: Please see assessment and plan for hospital course. This note was copied from prior note since it was mostly finished when I received a phone call from nurse senior manager saying that pt was upset and wanted to sign out AMA, then decided that she didn't want to. She has been indecisive and agitated since she got here. Pt states that she is upset and doesn't know why she is here and denies pain, fever , chills, nausea, vomiting, or diarrhea. Pt is insisting that she be discharged. She is being discharged in stable condition with the understanding that she follow up with her PCP and return to the ER immediately if symptoms return or worsen. Discharge discussed with: patient - Time Spent with Patient Total time spent providing and/or coordinating discharge services: Less than 30 minutes - Discharge Medications Home Medications: Esomeprazole Magnesium [Nexium] 40 mg PO DAILY 05/13/18 [History] Ezetimibe [Zetia] 10 mg PO HS 05/13/18 [History] Levalbuterol [Xopenex INH] 45 mcg IH Q4H PRN 05/13/18 [History] Montelukast [Singulair] 10 mg PO DAILY 05/13/18 [History] hydroCHLOROthiazide [Hydrochlorothiazide] 25 mg PO DAILY 05/13/18 [History] Allergies/Adverse Reactions: 3 Allergy/AdvReac Type Severity Reaction Status Date / Time chlorzoxazone Allergy Hives Verified 05/13/18 15:20 [From Parafon Forte] albuterol AdvReac See Verified 05/13/18 15:20 Comments Amoxicillin [From Augmentin] AdvReac Vomiting Verified 05/13/18 15:20 ciprofloxacin [From Cipro] AdvReac Gastrointestinal Verified 05/13/18 15:20 Upset clavulanic acid AdvReac Vomiting Verified 05/13/18 15:20 [From Augmentin] Cyclobenzaprine AdvReac Muscle Pain Verified 05/13/18 15:20 [From Flexeril] naproxen [From Naprosyn] AdvReac Muscle Pain Verified 05/13/18 15:20 pentazocine [From Talwin] AdvReac Headache Verified 05/13/18 15:20 Sulfa (Sulfonamide AdvReac Gastrointestinal Verified 05/13/18 15:20 Antibiotics) Upset Date of admission: 05/13/18 17:59 Primary care physician: Alexei David DO Consults: 05/13/18 20:32 Consult to Gastroenterology [CONS] Routine Consulting Provider: Gastroenterology Rhonda Reason for Consult: RUQ ad pain. CBD dilation Call Completed: No Discharging clinician: Sonia Gamboa - Constitutional Vitals: Temp Pulse Resp BP Pulse Ox 99.0 F 81 16 117/72 96 05/14/18 11:10 05/14/18 11:10 05/14/18 11:10 05/14/18 11:10 05/14/18 11:10 General appearance: Present: A&O X 3, no acute distress, answers questions appropriately. Absent: cooperative, pleasant Exam: as above - Head Head exam: Present: atraumatic, normal inspection, normocephalic - Eye Eye exam: Present: PERRL, conjuntiva pink, sclera anicteric Pupils: Present: PERRL - Neck Neck exam general surgery: Present: supple, trachea midline. Absent: lymphadenopathy - Respiratory Respiratory exam: Present: CTAB. Absent: accessory muscle use, rales, rhonchi, wheezes - Cardiovascular Cardiovascular exam: Present: RRR, +S1, +S2. Absent: diastolic murmur, gallop, rubs, systolic murmur - GI/Abdominal GI/Abdominal exam: Present: normal bowel sounds, soft. Absent: distended, hepatomegaly, tenderness - Extremities Exam Extremities exam: Present: normal capillary refill, normal inspection, warm, radial pulses palpable and symmetrical. Absent: calf tenderness, cyanotic, pedal edema, tenderness - Neurological Exam Neurological exam: Present: alert, oriented X3, no focal deficits. Absent: facial droop, speech deficit - Skin Skin exam: Present: dry, intact, normal color, warm. Absent: rash - Patient Status Disposition: Home, Self-Care Condition: Good Functional capacity at discharge: independent ambulation Overall status at discharge: patient is progressing back to baseline - Discharge Instructions Instructions: Acute Abdominal Pain (DC) Follow Up With: Alexei David DO [Primary Care Provider] - 05/21/18 11:30 am Additional Instructions: Follow with your PCP in the next 5-7 days. Return to the ER as needed for any other problems or concerns, or if your symptoms return or worsen. Take your medications as directed. REturn to your normal diet and activities as tolerated. - Diet and Activity Activity: increase activity as tolerated Diet: advance to your usual diet
--- NOTE | 2018-05-15 17:59 | Electrocardiograph Report ---
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
== END 2018-05-14 16:56 | disposition home or self-care (01) ==
LOC: EMEROOARM 14:12 → 3BNU 14:12
PROVIDERS: ADMIT Internal Medicine; ATTEND Internal Medicine